=== PATIENT | male | born 1965 | race Caucasian/White ===

== ENCOUNTER 2021-04-20 11:47 | Outpatient (CLI) | payer MEDICARE, MEDICAID, SELFPAY ==
--- NOTE | ~2021-04-20 | PE_ITS ---
EXAMINATION: PET skull to mid thigh DATE: 04/20/2021 14:00 INDICATION: Enlarged periesophageal lymph node TECHNIQUE: Blood glucose level was 110 mg/dL. 11.03 mCi of 18-fluorodeoxyglucose (18-FDG) was adminis tered i.v. Low dose computed tomography (CT) images were acquired from the base of the brain to the p roximal thighs for attenuation correction and anatomic localization. Positron emission tomography (PE T) images were acquired in the same distribution beginning 46 minutes after injection. The dose-lengt h product (DLP) was 16322.23 mGy-cm. COMPARISON: None FINDINGS: Head/neck: There are changes of right temporal craniotomy with encephalomalacia in the right temporal lobe and ex vacuo enlargement of the right lateral ventricle. No abnormal FDG uptake is identified. FDG uptake in the oral cavity and vocal cords without suspicious CT correlate is likely physiologic. Chest: No abnormal FDG uptake is identified. There is an 11 mm periesophageal lymph node on image 303 which does not demonstrate FDG uptake. Cardiomegaly is noted. There is mild dependent atelectasis. N o focal airspace opacities are identified. There is no pleural effusion or pneumothorax. There is mil d wall thickening of the distal esophagus without definite abnormal FDG uptake identified. Abdomen/pelvis/proximal thighs: Physiologic FDG activity is present in the bowel and urinary tract. N o abnormal FDG uptake is identified. The liver, pancreas, gallbladder, and adrenal glands are normal. Punctate calcifications in an otherwise normal spleen likely represent healed granulomatous disease. There is a 3.1 cm cyst of the right kidney. The left kidney is unremarkable. No pathologically enlar ged abdominal or pelvic lymph nodes are identified. There is no free intraperitoneal gas or evidence of bowel obstruction. Musculoskeletal: No abnormal FDG uptake is identified. IMPRESSION: 1. Enlarged periesophageal lymph node without abnormal FDG uptake, likely reactive. 2. Mild wall thickening of the distal esophagus without definite abnormal FDG uptake identified. Yunior mmend direct visualization of the previously performed. Reviewed, dictated and finalized at location A. IMPRESSION: 1. Enlarged periesophageal lymph node without abnormal FDG uptake, likely react bird. 2. Mild wall thickening of the distal esophagus without definite abnormal FDG u ptake identified. Recommend direct visualization of the previously performed.
[2021-04-20 12:14] LABS: Glucose Point of Care 110 mg/dl (65-105)
== END 2021-04-20 11:48 | disposition home or self-care (01) ==
PROVIDERS: PCP Internal Medicine; Visit Provider Nurse Practitioner
DX: R60.0 Localized edema (principal)
CPT/HCPCS: 78815; 82948; A9552